=== PATIENT | male | born 1995 | race Caucasian/White ===

== ENCOUNTER 2018-10-10 16:20 | Emergency (ER) | payer OTHER ==
[2018-10-10 16:27] VITALS: BP 118/72
--- NOTE | 2018-10-10 16:49 | EDPHY ---
HPI/HX/ROS/PE/MDM Narrative: CLINICAL IMPRESSION: Left hand laceration ASSESSMENT/PLAN: Patient is a 23-year-old male with no significant medical history who presents to the emergency department with a laceration to his left hand. Patient is not toxic appearing, he is in no distress. Physical examination reveals approximately 4 cm laceration across the left 1st webspace. There is no evidence of deep structure involvement, neurovascular compromise, foreign body, or bony involvement. The wound was not contaminated, tetanus status was updated today. The wound was irrigated and then repaired as discussed in the procedure note, this was performed by Dorcas ZAPATA; please see her dictation. Wound care instructions discussed with patient and family member. Patient will return to the emergency department or his primary care provider in approximately 7-10 days for suture removal. Return precautions discussed- he will return for increased pain, signs of infection, fever, vomiting, if the wound opens or for any other concerns. Patient and family member both verbalize understanding and are in agreement with plan] DIFFERENTIAL DIAGNOSIS: includes but not limited to laceration of tendon or vascular structure, underlying fracture, laceration with retained FB ED PROCEDURES: Please see Polina Patel PA-C procedure note CHIEF COMPLAINT: Left hand Laceration HPI: Patient is a 23-year-old male who presents to the emergency department after sustaining a laceration to his left hand. Patient was trying to fix something with his knife when he accidentally slipped causing him to lacerate through the 1st webspace of his left hand. Patient was immediately able to get the bleeding under control. He denies any numbness or tingling of the thumb or digits. He has been able to move it without difficulty. Patient is right handed, he is not up-to-date on his tetanus. He denies any other complaint or injury. PAST MEDICAL HISTORY: Denies Pertinent Past Surgical History: Denies REVIEW OF SYSTEMS: All other systems negative Constitutional: No fever, no chills Musculoskeletal: No deformity, no joint pain Skin: Laceration left hand Neurological: No sensory loss or weakness, 2 point discrimination intact. PHYSICAL EXAM: General Appearance: Alert, oriented, appropriate for age, cooperative, NAD, well hydrated, non-toxic appearing, VSS, no hypoxia. Neurological: Alert and oriented x 3 Skin: No rash, laceration of left hand as mentioned. Musculoskeletal: Upper Extremities: Intact distal pulses, Full range of motion intact, no tenderness, no ecchymosis or edema. Approximately 4 cm laceration noted to the left 1st webspace. Patient has full sensation on the radial and ulnar aspects of the left thumb. The radial, ulnar and median nerves were all tested. Radial nerve: Patient is able to extend wrist and fingers of the local joints. Ulnar nerve: Patient is able to abduct all fingers. Median nerve patient is able to oppose thumb to pinky. Lower Extremities: Intact distal pulses, No edema, No tenderness, No cyanosis, full range of motion intact, No calf tenderness bilaterally. MEDICAL DECISION MAKING: Patient was seen independently. Secondary supervising physician at time of evaluation was Dr. Wolfe. Diagnosis: Left hand laceration. New, requires workup Summary: See assessment and plan for summary of ED visit Clinical lab tests: Not applicable. Independent visualization of images, tracing, or specimens not applicable. Decision to obtain medical records or history from someone other than the patient: No. Review / Summarize previous medical records no Discussed patient with another provider stable, discharged home (Keyana Mcknight) MDM: Procedure: Laceration repair. Verbal consent was obtained from the patient. The deep, simple 7 mm laceration on the left palm between thumb and index finger was anesthetized in the usual fashion using 6 mL of 1% lidocaine with epinephrine. The wound was irrigated, draped and explored to its base with a gloved finger. There were no deep structures involved. No tendon injury was identified. The wound was repaired with #12, 4 0 Prolene in a simple interrupted pattern. Good hemostasis was achieved and patient tolerated procedure well. Clean sterile dressing applied. The procedure was performed by myself. (Dorcas Patel) - Data Points Medications Given: Discontinued Medications Diphtheria/Tetanus/Acell Pertussis (Boostrix) 0.5 ml IM .ONCE ONE Stop: 10/10/18 16:53 Last Admin: 10/10/18 16:59 Dose: 0.5 ml General Initial Vital Signs: Initial Vital Signs Temperature (C) 37.5 C 10/10/18 16:25 Heart Rate 80 10/10/18 16:25 Respiratory Rate 16 10/10/18 16:25 Blood Pressure 118/72 10/10/18 16:25 O2 Sat (%) 99 10/10/18 16:25 O2 Delivery Mode Room Air Allergies/Adverse Reactions: No Known Allergies Allergy (Unverified 10/10/18 16:27) Home Medications: Medication Instructions Recorded NK [No Known Home Meds] 10/10/18 Departure - Departure Disposition: Home, Routine, Self-Care Clinical Impression: Laceration of hand Qualifiers: Encounter type: initial encounter Foreign body presence: without foreign body Laterality: left Qualified Code(s): S61.412A - Laceration without foreign body of left hand, initial encounter Condition: Good Instructions: Laceration (ED) Additional Instructions: DISCHARGE INSTRUCTIONS FROM YOUR DOCTOR Thank you for visiting our emergency department today. Please keep in mind that discharge from the emergency department does not mean that there is nothing wrong - it simply means that we have not identified an emergency condition that requires further evaluation or treatment in the hospital. Keep wound clean and dry for 24 hours. Then remove dressing, clean at least twice daily or when soiled with soap and water, apply antibiotic ointment and dressing. Do not soak the wound while the stitches are in place. Elevate hand as much as possible for the next 24 hours to decrease the swelling and pain. Anticipate suture removal in 7-10 days. You may follow up with your PCP or return to the emergency department for suture removal. Tylenol every 4-6 hours as directed as needed for pain. Do not exceed 4000 mg in 24 hours. Ibuprofen as directed every 6-8 hours with food as needed for pain. Stop for stomach upset. Do not exceed 2400 mg in 24 hours. Continue your regular medications as prescribed. Schedule a follow-up visit with your primary care physician for suture removal in 7-14 days and sooner for wound check for any concerns. As discussed the laceration was not deep enough to visualize the tendon today. It is unlikely a tendon injury is present and your tendon function is currently intact. However, if at any time, you feel a pop and have difficulty bending or straightening the finger, you should seek re-evaluation from a hand specialist urgently. Return for signs of wound infection ie: redness, swelling, drainage, foul odor, red streaks, fever, chills, pain, bleeding, if the stitches pop, if the wound opens, for numbness, tingling, weakness, discoloration of the finger, coolness of the finger, inability to move or bend the finger or for any other new, worsening or worrisome symptoms. People present with illnesses and injuries in different ways, and it is always possible that we have missed something. You may always return for re-evaluation if symptoms worsen or if they are not improving or if you develop new/different symptoms. Again, thank you for choosing our emergency department. We hope that you feel better. The [facility] has walk-in appointments. No appointment is needed. Sunday 8-10 am @ [facility] 11 AM-1 PM @ [facility] Sunday 8-10:30 AM @ [facility] Sunday 8-10 AM @ [facility] 2-4 PM @ [facility] Sunday 8-10 AM @ [facility] Referrals: Savita Hogan MD [Medical Doctor] - As per Instructions
[2018-10-10] MEDS ORDERED: TDAP ADULT 0.5 ML INJ (BOOSTRIX) IM ONE (16:52)
== END 2018-10-10 17:52 | disposition home or self-care (01) ==
PROC: 0HQGXZZ Repair Left Hand Skin, External Approach (ICD-10-PCS; principal; 2018-10-10)
DX: S61.412A Laceration without foreign body of left hand, initial encounter (principal); W26.0XXA Contact with knife, initial encounter; Y92.9 Unspecified place or not applicable; Y93.9 Activity, unspecified; Y99.9 Unspecified external cause status; Z23 Encounter for immunization